=== PATIENT | male | born 1965 | race Caucasian/White ===

== ENCOUNTER 2017-10-15 09:10 | Emergency (ER) | payer OTHER ==
[2017-10-15] MEDS ORDERED: IBUPROFEN 800 MG TABLET PO ONE (10:54)
[2017-10-15] MEDS ORDERED: LIDOCAINE 1% INJ-PF (10 MG/ML) 30 ML SDV INJ ONE (10:54)
[2017-10-15] MEDS ORDERED: CEPHALEXIN 500 MG CAPSULE PO ONE (10:54)
[2017-10-15] MEDS ORDERED: SULFAMETHOXAZOLE/TRIMETHOPRIM 800-160 MG TABLET PO ONE (10:54)
--- NOTE | 2017-10-15 12:09 | ER Document Report ---
ED Skin Rash/Insect Bite/Abscs - General Chief Complaint: Abscess Stated Complaint: POSSIBLE ABSCESS Time Seen by Provider: 10/15/17 10:35 Notes: 52-year-old male to the emergency department complaining of abscess on his right flank area. History of multiple abscesses. Has not had one for a long time. Starts to have increasing redness around this painful swollen area on his right lateral lower abdomen. Fevers and chills last night. Pain to palpation. TRAVEL OUTSIDE OF THE [place] IN LAST 30 DAYS: No - HPI Patient complains to provider of: Skin rash/lesion, Tender/swollen area Onset: Yesterday Onset/Duration: Gradual, Constant Quality of pain: Throbbing Severity: Moderate Pain Level: 3 Skin Character: Abscess - Related Data Allergies/Adverse Reactions: No Known Allergies Allergy (Verified 11/13/12 02:43) Past Medical History - General Information source: Patient - Social History Smoking Status: Never Smoker Chew tobacco use (# tins/day): No Frequency of alcohol use: None Drug Abuse: None Lives with: Spouse/Significant other Family History: Reviewed & Not Pertinent Patient has suicidal ideation: No Patient has homicidal ideation: No - Past Medical History Cardiac Medical History: Reports: Hx Hypertension Endocrine Medical History: Reports: Hx Diabetes Mellitus Type 2 Renal/ Medical History: Denies: Hx Peritoneal Dialysis Psychiatric Medical History: Reports: Hx Depression - Immunizations Immunizations up to date: Yes Hx Diphtheria, Pertussis, Tetanus Vaccination: Yes Review of Systems - Review of Systems Constitutional: Fever. denies: Malaise, Weakness EENT: denies: Difficulty swallowing, Throat swelling, Mouth pain Cardiovascular: Heart racing. denies: Chest pain, Palpitations Respiratory: denies: Cough, Hurts to breathe, Short of breath, Wheezing Gastrointestinal: Abdominal pain. denies: Diarrhea, Nausea, Vomiting Skin: Lesions, Rash, Other - Abscess Neurological/Psychological: denies: Confusion, Weakness, Numbness Physical Exam - Vital signs Vitals: Temp Pulse Resp BP Pulse Ox 98.5 F 95 16 137/94 H 97 10/15/17 09:27 10/15/17 09:27 10/15/17 09:27 10/15/17 09:27 10/15/17 09:27 Interpretation: Normal - General General appearance: Appears well, Alert - Respiratory Respiratory status: No respiratory distress Chest status: Nontender Breath sounds: Normal Chest palpation: Normal - Cardiovascular Rhythm: Regular Heart sounds: Normal auscultation Murmur: No - Abdominal Inspection: Normal Distension: No distension Bowel sounds: Normal Tenderness: Nontender Organomegaly: No organomegaly - Extremities General upper extremity: Normal inspection, Nontender, Normal color, Normal ROM , Normal temperature General lower extremity: Normal inspection, Nontender, Normal color, Normal ROM , Normal temperature, Normal weight bearing. No: Cecilia's sign - Skin Skin Temperature: Warm Skin Moisture: Dry Skin Color: Other - There is a 4 cm abscess area with surrounding erythema on the right lateral lower abdominal wall area. Very tender to the touch. Course - Re-evaluation Re-evalutation: 10/15/17 13:26 Abscess was I&D. Please see procedure note. Patient was started on antibiotics. Cultures were obtained. Recommend 24-hour follow-up. 1/4 inch iodoform gauze was placed. - Vital Signs Vital signs: Temp Pulse Resp BP Pulse Ox 98.0 F 81 16 113/71 98 10/15/17 12:30 10/15/17 12:30 10/15/17 09:27 10/15/17 12:30 10/15/17 12:30 Procedures - Incision and Drainage Right Abdomen Time completed: 12:05 Type: Simple Anesthetic type: 1% Lidocaine mL's of anesthetic: 10 Blade size: 11 I&D procedure: Betadine prep applied Incision Method: Incision made by scalpel Amount/type of drainage: Bloody purulent discharge Notes: 10/15/17 12:06 packed with 1/4 [place]ka Discharge - Discharge Clinical Impression: Skin abscess Qualifiers: Site of cutaneous abscess: other site Qualified Code(s): L02.818 - Cutaneous abscess of other sites Condition: Good Disposition: HOME, SELF-CARE Instructions: Abscess ([facility]), Cephalexin ([facility]), Oral Narcotic Medication ([facility]), Trimethoprim-Sulfa ([facility]) Additional Instructions: Return to the emergency department 24 hours for recheck. Return sooner if he begin to develop worsening symptoms including fever, chills, sweats, worsening redness and spreading and worsening pain. Prescriptions: Cephalexin Monohydrate [Keflex 500 mg Capsule] 500 mg PO Q6H 7 Days #287 capsule Hydrocodone/Acetaminophen [[place] 5-325 mg Tablet] 1 tab PO TID 3 Days #9 tablet Sulfamethoxazole/Trimethoprim [Bactrim Ds Tablet] 1 each PO BID 7 Days #14 tablet
[2017-10-15 12:31] VITALS: BP 113/71
== END 2017-10-15 12:53 | disposition home or self-care (01) ==
LOC: ER 09:10
PROC: 0H97XZZ Drainage of Abdomen Skin, External Approach (ICD-10-PCS; principal; 2017-10-15)
DX: L02.211 Cutaneous abscess of abdominal wall (principal); L02.818 Cutaneous abscess of other sites; R50.9 Fever, unspecified; R21 Rash and other nonspecific skin eruption; I10 Essential (primary) hypertension; E11.9 Type 2 diabetes mellitus without complications
CPT/HCPCS: 99283; 87070; 87205; 87075; 87077; 87186; 10060; A6266; J3490

== ENCOUNTER 2019-10-29 19:36 | Emergency (ER) | payer OTHER ==
[2019-10-29] MEDS ORDERED: RINGERS SOLUTION,LACTATED 1,000 ML IV ONE (22:20)
--- NOTE | 2019-10-29 22:20 | ER Document Report ---
ED Medical Screen (RME) - General Chief Complaint: High Blood Sugar Stated Complaint: BLOOD SUGAR Time Seen by Provider: 10/29/19 22:15 Mode of Arrival: Ambulatory Information source: Patient Notes: HPI; 54-year-old male presents to the emergency room stating [facility]. Does not recall the exact numbers or what tests he was told were elevated but he was told he needed to come straight to the emergency room. Has had some intermittent left lower quadrant pain over the past several weeks currently minimal pain. No nausea, no vomiting, no fevers. No urinary symptoms. PE: Alert and oriented x3. Lungs: Clear to auscultation without rales, rhonchi, wheezes. Heart: Tachycardic without murmurs, rubs, gallops. Unable to do abdominal exam in triage. I have greeted and performed a rapid initial assessment of this patient. A comprehensive ED assessment and evaluation of the patient, analysis of test results and completion of the medical decision making process will be conducted by additional ED providers. I have specifically instructed the patient or family members with the patient to immediately return to any nursing staff should anything change in the patient's condition or with their chief complaint. TRAVEL OUTSIDE OF THE [place] IN LAST 30 DAYS: No - Related Data Allergies/Adverse Reactions: No Known Allergies Allergy (Verified 11/13/12 02:43) Past Medical History - Past Medical History Cardiac Medical History: Reports: Hx Hypertension Endocrine Medical History: Reports: Hx Diabetes Mellitus Type 2 Renal/ Medical History: Denies: Hx Peritoneal Dialysis Psychiatric Medical History: Reports: Hx Depression - Immunizations Immunizations up to date: Yes Hx Diphtheria, Pertussis, Tetanus Vaccination: Yes Physical Exam - Vital signs Vitals: Temp Pulse Resp BP Pulse Ox 98.1 F 106 H 16 155/99 H 100 10/29/19 19:46 10/29/19 19:46 10/29/19 19:46 10/29/19 19:46 10/29/19 19:46 Course - Vital Signs Vital signs: Temp Pulse Resp BP Pulse Ox 98.1 F 106 H 16 155/99 H 100 10/29/19 19:46 10/29/19 19:46 10/29/19 19:46 10/29/19 19:46 10/29/19 19:46
[2019-10-29 23:00] LABS: ABSOLUTE BASOPHILS # (AUTO) 0.1 10^3/uL (0.0-0.2); ABSOLUTE EOSINOPHILS # (AUTO) 0.1 10^3/uL (0.0-0.6); ABSOLUTE LYMPHOCYTES (AUTO) 2.5 10^3/uL (0.5-4.7); ABSOLUTE MONOCYTES (AUTO) 0.9 10^3/uL (0.1-1.4); ABSOLUTE NEUT (AUTO) 5.3 10^3/uL (1.7-8.2); BASOPHILS % (AUTO) 1.3 % (0-2); EOSINOPHILS % (AUTO) 1.5 % (0-6); HEMATOCRIT 43.8 % (37.9-51.0); HEMOGLOBIN 15.1 g/dL (13.5-17.0); LYMPHOCYTES % (AUTO) 27.9 % (13-45); MEAN CORPUSCULAR HEMOGLOBIN 30.9 pg (27.0-33.4); MEAN CORPUSCULAR HGB CONC 34.6 g/dL (32.0-36.0); MEAN CORPUSCULAR VOLUME 89 fl (80-97); MONOCYTES % (AUTO) 10.4 % (3-13); PLATELET COUNT 233 10^3/uL (150-450); RED BLOOD COUNT 4.91 10^6/uL (4.35-5.55); RED CELL DISTRIBUTION WIDTH 14.1 % (11.5-14.0); SEGMENTED NEUTROPHILS % (AUTO) 58.9 % (42-78); TOTAL CELLS COUNTED % (AUTO) 100 %
[2019-10-29 23:13] LABS: ALBUMIN 4.2 g/dL (3.5-5.0); ALKALINE PHOSPHATASE 161 U/L (38-126); ANION GAP 9 (5-19); ASPARTATE AMINO TRANSFERASE 413 U/L (17-59); BILIRUBIN,DIRECT 1.6 mg/dL (0.0-0.4); BILIRUBIN,TOTAL 3.2 mg/dL (0.2-1.3); BLOOD UREA NITROGEN 14 mg/dL (7-20); CALCIUM 9.7 mg/dL (8.4-10.2); CARBON DIOXIDE 28 mmol/L (22-30); CHLORIDE 97 mmol/L (98-107); GLUCOSE 226 mg/dL (75-110); TOTAL PROTEIN 7.7 g/dL (6.3-8.2)
[2019-10-30 01:12] LABS: APPEARANCE,URINE CLEAR; BILIRUBIN,URINE NEGATIVE (NEGATIVE); COLOR,URINE AMBER; GLUCOSE, URINE NEGATIVE (NEGATIVE); KETONES,URINE TRACE mg/dL (NEGATIVE); LEUKOCYTE ESTERASE,URINE NEGATIVE (NEGATIVE); NITRITE,URINE NEGATIVE (NEGATIVE); PROTEIN,URINE NEGATIVE (NEGATIVE); URINE SPECIFIC GRAVITY 1.012; UROBILINOGEN,URINE NEGATIVE mg/dL (<2.0)
--- NOTE | 2019-10-30 04:26 | ER Document Report ---
ED General - General Chief Complaint: Abnormal Lab Results Stated Complaint: BLOOD SUGAR Time Seen by Provider: 10/29/19 22:15 Primary Care Provider: YESSI GOMES [Primary Care Provider] - 11/02/19 Mode of Arrival: Ambulatory Notes: Patient is a 54-year-old male that comes emergency department for chief complaint of abnormal labs. Patient states that he was called by his [facility] primary care provider and they told him his liver enzymes were concerned only elevated and he should come to the emergency department. Patient states he was getting general labs to follow his blood glucose for adjustments. Patient denies abdominal pain although he states he has had intermittent constipation issues o hattie the past week and used an enema the other day. He denies bloody stools, vomiting, fever, recent travel, recent sick exposures. He denies any current symptoms. He has not had any abdominal surgeries. Past medical history of hypertension and type 2 diabetes. He denies alcohol, recreational drugs, smoking. TRAVEL OUTSIDE OF THE [place] IN LAST 30 DAYS: No - Related Data Allergies/Adverse Reactions: No Known Allergies Allergy (Verified 11/13/12 02:43) Home Medications: glipizide, losartan, garlic, fish oil Past Medical History - General Information source: Patient - Social History Smoking Status: Never Smoker Frequency of alcohol use: None Drug Abuse: None Lives with: Family Family History: Reviewed & Not Pertinent Patient has homicidal ideation: No - Past Medical History Cardiac Medical History: Reports: Hx Hypertension Endocrine Medical History: Reports: Hx Diabetes Mellitus Type 2 Renal/ Medical History: Denies: Hx Peritoneal Dialysis Psychiatric Medical History: Reports: Hx Depression - Immunizations Immunizations up to date: Yes Hx Diphtheria, Pertussis, Tetanus Vaccination: Yes Review of Systems - Review of Systems Constitutional: No symptoms reported EENT: No symptoms reported Cardiovascular: No symptoms reported Respiratory: No symptoms reported Gastrointestinal: No symptoms reported Genitourinary: No symptoms reported Male Genitourinary: No symptoms reported Musculoskeletal: No symptoms reported Skin: No symptoms reported Hematologic/Lymphatic: No symptoms reported Neurological/Psychological: No symptoms reported Physical Exam - Vital signs Vitals: Temp Pulse Resp BP Pulse Ox 98.1 F 106 H 16 155/99 H 100 10/29/19 19:46 10/29/19 19:46 10/29/19 19:46 10/29/19 19:46 08/20/20 19:46 - Notes Notes: GENERAL: Alert, interacts well. No acute distress. HEAD: Normocephalic, atraumatic. EYES: Pupils equal, round, and reactive to light. Extraocular movements intact. ENT: Oral mucosa moist, tongue midline. Oropharynx unremarkable. Airway patent. NECK: Full range of motion. Supple. Trachea midline. No lymphadenopathy. LUNGS: Clear to auscultation bilaterally, no wheezes, rales, or rhonchi. No respiratory distress. Non-tender chest wall. HEART: Regular rate and rhythm. No murmur ABDOMEN: Soft, non-tender. Non-distended. Bowel sounds present in all 4 quadrants. GENITOURINARY: Deferred EXTREMITIES: Moves all 4 extremities spontaneously. No edema, normal radial and dorsalis pedis pulses bilaterally. No cyanosis. BACK: no cervical, thoracic, lumbar midline tenderness. No saddle anesthesia, normal distal neurovascular exam. Moves all extremities in full range of motion. NEUROLOGICAL: Alert and oriented x3. Normal speech. Cranial nerves II through XII grossly intact. Strength 5/5 in all extremities. PSYCH: Normal affect, normal mood. SKIN: Warm, dry, normal turgor. No rashes or lesions noted. Course - Re-evaluation Re-evalutation: Patient's abdomen is actually soft and benign. He is alert and well-appearing. CBC unremarkable. Chemistries concerning with elevated LFTs with ALT greater than AST, elevated alk phos, elevated bilirubin. Unremarkable lipase. Patient has been here for several hours therefore his labs were repeated along with an ultrasound. Labs actually show slight improvement on all counts. Ultrasound shows cholelithiasis but no dilation of the common bile duct and no other concerning findings. I discussed with Dr. Noe, he recommends I speak with gastroenterology first because patient may need an ERCP. 10/30/19 08:[address] Jose, gastroenterology. He recommends that because patient cabrera s not had pain, vomiting, or concerning findings of obstruction in the common bile duct on ultrasound that patient can actually be discharged. He states that patient needs a PT/INR performed, SALENA, hepatitis panel, and a small and additional anti-nuclear antibodies, and [facility] He is to return if he develops any symptoms. I reevaluate patient. He has not had any symptoms during his time here and he has no current symptoms. His abnormalities were noted on routine work-up. Patient provided with a copy of his labs. SALENA performed, hepatitis panel performed and pending, however the additional antibodies I was unable to order at this time in the [employer] system from the emergency department. I discussed all details with patient and daughter at length. They state understanding and agreement. - Vital Signs Vital signs: Temp Pulse Resp BP Pulse Ox 98.2 F 79 17 144/93 H 100 10/30/19 08:26 10/30/19 08:26 10/30/19 08:26 10/30/19 08:26 10/30/19 08:26 - Laboratory Result Diagrams: 10/29/19 22:50 10/30/19 05:54 Laboratory results interpreted by me: 10/29/19 10/29/19 10/30/19 22:50 22:50 00:51 RDW 14.1 H Sodium 134.1 L Chloride 97 L Glucose 226 H Total Bilirubin 3.2 H Direct Bilirubin 1.6 H AST 413 H ALT 780 H Alkaline Phosphatase 161 H Urine Ketones TRACE H 10/30/19 05:54 RDW Sodium 133.6 L Chloride Glucose 229 H Total Bilirubin 2.8 H Direct Bilirubin 1.3 H AST 351 H ALT 728 H Alkaline Phosphatase 138 H Urine Ketones Discharge - Discharge Clinical Impression: Abnormal liver function tests Condition: Stable Disposition: HOME, SELF-CARE Additional Instructions: Your liver functioning tests (and also other associated chemistry labs including bilirubin, alkaline phosphate, etc.) are abnormally elevated. You also do have gallstones. However there is no blockage noted, your lab tests are improving, and your lack of symptoms is very reassuring. I spoke with Dr. Jose, [facility]. Please follow-up on Saturday with the [facility] to have your lipase, PT/INR, and complete metabolic panel repeated to monitor your liver. We have pending tests including SALENA and hepatitis panel as well. Take your labs with you. Come back if you develop symptoms including abdominal pain, fever, vomiting, or any other concerning symptoms. Referrals: [facility] [Primary Care Provider] - 11/02/19
--- NOTE | 2019-10-30 05:52 | RADIOLOGY REPORT (SQ) ---
Ultrasound of the right upper quadrant of the abdomen: 10/30/2019 4:50 AM CDT Technique: Multiple grayscale color Doppler images of the right upper quadrant of the abdomen were obtained. Comparison: None available History: 54-year old patient with abdominal pain. Findings: The visualized portions of the hepatic parenchyma appears diffusely echogenic. There is normal directional flow seen within the main portal vein. There is nonspecific gallbladder wall thickening. Cholelithiasis is also seen. The common duct measures 2.0 mm. The right kidney measures up to 12.1 cm in length. The right kidney demonstrates normal cortical echogenicity with no evidence to suggest hydronephrosis. The visualized portions of the IVC, abdominal aorta, and pancreatic head appear normal. No free intraperitoneal fluid is seen. Impression: Cholelithiasis is seen. The common duct is within normal limits of size. Hepatic steatosis
[2019-10-30 06:30] LABS: ALBUMIN 3.6 g/dL (3.5-5.0); ALKALINE PHOSPHATASE 138 U/L (38-126); ANION GAP 7 (5-19); ASPARTATE AMINO TRANSFERASE 351 U/L (17-59); BILIRUBIN,DIRECT 1.3 mg/dL (0.0-0.4); BILIRUBIN,TOTAL 2.8 mg/dL (0.2-1.3); BLOOD UREA NITROGEN 14 mg/dL (7-20); CALCIUM 9.2 mg/dL (8.4-10.2); CARBON DIOXIDE 28 mmol/L (22-30); CHLORIDE 99 mmol/L (98-107); GLUCOSE 229 mg/dL (75-110); POTASSIUM 3.9 mmol/L (3.6-5.0); TOTAL PROTEIN 6.9 g/dL (6.3-8.2)
[2019-10-30 09:51] LABS: INTERNATIONAL RATION (INR) 1.08; PROTHROMBIN TIME 14.2 SEC (11.4-15.4)
[2019-10-30 10:43] VITALS: BP 131/91
[2019-10-31 09:37] LABS: HEPATITS B SURFACE ANTIGEN Negative (Negative)
[2019-10-31 15:07] LABS: ANTINUCLEAR ANTIBODIES Negative (Negative)
[2019-10-31 15:08] LABS: HEPATITIS C VIRUS ANTIBODY 0.1 s/co ratio (0.0-0.9)
== END 2019-10-30 10:46 | disposition home or self-care (01) ==
LOC: ER 19:36
DX: R94.5 Abnormal results of liver function studies (principal); E11.65 Type 2 diabetes mellitus with hyperglycemia; I10 Essential (primary) hypertension; K59.00 Constipation, unspecified; Z79.899 Other long term (current) drug therapy
CPT/HCPCS: 99285; 96360; 96361; 36415; 83690; 85025; 85610; 80053; 81001; 86038; 80074; 76705; J7120